=== PATIENT | female | born 1990 | race Caucasian/White ===

== ENCOUNTER 2019-05-09 05:28 | Day surgery (SDC) | payer OTHER ==
[~2019-05-09] VITALS: Ht 162.6 cm; Wt 56.7 kg
--- NOTE | ~2019-05-09 | O ---
[facility] [place] [address] OPERATIVE REPORT Name: WILI TYLER Room #: DEP [facility]..#: [id number] Admission: 05/09/19 ������������������ Attend Phys: Gordo Miranda MD Discharge: 05/09/19 ������������������ Date of : 89 Report #: [id number] THIS REPORT FOR: //name// CC: BARRETT Miranda Physician staff DATE OF SERVICE: 05/09/2019 PREOPERATIVE DIAGNOSIS: Recurrent pilonidal abscess and sinus tract. POSTOPERATIVE DIAGNOSIS: Recurrent pilonidal abscess and sinus tract. PROCEDURES PERFORMED: Pilonidal cystectomy with primary closure of defect. ANESTHESIA: General prone position. SURGEON: Gordo Miranda M.D. COMPLICATIONS: None. ESTIMATED BLOOD LOSS: 5 mL. PROCEDURE NOTE: With the patient under general anesthesia, she was placed in a prone position. The IV antibiotic was administered. The sacral area was prepped and draped with Betadine. Timeout was performed. The patient has a chronic abscess site located left of the midline and adjacent to it along the midline, there is very small indentation, which looks like the origin of the ingrown hair. I did probe this small opening, but was not able to get any probe into it. An ellipse was then drawn around the chronic infected area and also including the midline indentation. This is a curved shaped ellipse. Skin and subcutaneous tissue was then anesthetized with 0.25% Marcaine. Sharp dissection was carried through the skin. Cautery was then used to dissect the subcutaneous tissue. Care was taken to stay away from the infected tissue. The dissection carried down to the presacral fascia. The entire specimen was then removed and normal edges were obtained. The deep subcutaneous tissue was brought together with 2-0 PDS suture in an interrupted fashion. The second wound fascial deep subcutaneous tissue was closed with 3-0 PDS. Skin was then closed with 4-0 nylon in interrupted fashion. Irrigation was performed prior to closure. Antibiotic ointment was placed over the sutures and a 4 x 4 tape was then applied. The patient taken to recovery. The patient was then turned on her [address] [address] OPERATIVE REPORT Name: WILI TYLER Makenzie Room #: DEP [facility]..#: [id number] Admission: 05/09/19 ������������������ Attend Phys: Gordo Miranda MD Discharge: 05/09/19 ������������������ Date of : 89 Report #: [id number] back and then extubated and taken to the recovery room. The patient tolerated the procedure well. ��������������������������������������������� ���������������������������������������� By: ��������������������������������������������� [id number] Gordo Miranda MD /nt
[~2019-05-09 05:28] MED LIST: CLEOCIN HCL300 MG PO; NORCO 5-325 TA1 EAC1 PO
[2019-05-09 10:19] VITALS: BP 123/72
[2019-05-09] MEDS ORDERED: NORCO 5-325 TA1 EAC1 PO (13:41)
[2019-05-09 13:59] VITALS: BP 123/72
--- NOTE | 2019-05-12 14:05 | PATH ---
[facility] [address] [place] [address] PATHOLOGY RPT PROCEDURE Name: WILI TYLER Room #: DEP [facility] M.R.#: [id number] ������������������ Admission: 05/09/19 ������������������ Date of : 89 Discharge: 05/09/19 Report #: [id number] Path Case #: [id number] [facility] Accession Number: [id number] . 01 Material submitted: . buttock - PILONIDAL CYST . 01 Clinical history: . Pilonidal sinus tract with abscess . 02 Diagnosis: Pilonidal cyst, cystectomy: - Marked acute inflammation associated with abscess formation and giant cell reaction within subcutaneous tissue, compatible with pilonidal cyst. - Overlying squamous epithelium showing reactive changes. - Completely excised. . (IUV:mml; 05/11/2019) QLM/05/11/2019 . 02 Electronically signed: . Suzanne Sauceda MD, Pathologist NPI- [id number] . 01 Gross description: . The specimen is received in formalin, labeled "Wili Tyler, pilonidal cyst". Received is an excision of pale montes to pink-molina skin with attached underlying fibroadipose tissue measuring 6.2 x 4.1 x 2.6 cm in greatest dimensions. Sectioning reveals a hemorrhagic abscess cavity measuring 1.2 cm filled with blood coagulum. The remaining cut surfaces display a bright yellow, lobulated to white-montes, fibrous cut surfaces with no grossly distinct sinus tract. The specimen is submitted representatively in cassette A1. (CAA; 05/09/2019) QAC/QAC . 02 Pathologist provided ICD-10: L72.11 . 02 CPT . 347819 Specimen Comment: A courtesy copy of this report has been sent to Specimen Comment: [phone], , . Specimen Comment: Report sent to ,DR REILLY / DR BILLS Performed at: [address], [place] [id number] [place] [address] PATHOLOGY RPT PROCEDURE Name: WILI TYLER Room #: DEP [facility] Ro#: [id number] ������������������ Admission: 05/09/19 ������������������ Date of : 89 Discharge: 05/09/19 Report #: [id number] Path Case #: [id number] MD Quiuqe Medrano MD Phone: [phone] Performed at: [address] [id number] MD Suzanne Sauceda MD Phone: [phone]
== END 2019-05-09 14:50 | disposition home or self-care (01) ==
LOC: TBA 05:28 → OR 05:28 → TBA 05:29 → OR 10:13
DX: L05.02 Pilonidal sinus with abscess (principal); Z98.890 Other specified postprocedural states; Z88.0 Allergy status to penicillin; Z88.2 Allergy status to sulfonamides; Z79.891 Long term (current) use of opiate analgesic
CPT/HCPCS: 50010; 50101; 50386; 50403; 56525; 56526; 62110; 62900; 70005